=== PATIENT | male | born 1990 | race Caucasian/White ===

== ENCOUNTER 2017-08-14 11:05 | Day surgery (SDC) | payer BC ==
[~2017-08-14 11:05] MED LIST: Lactated Ringers 1,000 ML IV SCH
[2017-08-14] MEDS ORDERED: Lidocaine 2% 5 ML SDV ONE (11:33)
--- NOTE | 2017-08-14 11:56 | PCM.PREANE ---
Preanesthetic Assessment - Anesthesia/Transfusion/Family Hx Anesthesia History: Prior Anesthesia Without Reaction Family History of Anesthesia Reaction: No Transfusion History: No Prior Transfusion(s) Intubation History: Unknown - Review of Systems General: No Symptoms Pulmonary: No Symptoms Cardiovascular: No Symptoms Gastrointestinal: Abdominal Pain Neurological: No Symptoms Other: Reports: None - Physical Assessment O2 Sat by Pulse Oximetry: 96 Respiratory Rate: 18 Vital Signs: Last Vital Signs Temp 36.5 C 08/14/17 11:31 Pulse 70 08/14/17 11:31 Resp 18 08/14/17 11:31 BP 132/72 08/14/17 11:31 Pulse Ox 96 08/14/17 11:31 Height: 1.68 m Weight: 104.326 kg ASA Class: 2 Mental Status: Alert & Oriented x3 Airway Class: Mallampati = 2 Dentition: Reports: Normal Dentition Thyro-Mental Finger Breadths: 3 Mouth Opening Finger Breadths: 3 ROM/Head Extension: Full Lungs: Clear to Auscultation, Normal Respiratory Effort Cardiovascular: Regular Rate, Regular Rhythm - Allergies Allergies/Adverse Reactions: Allergies Allergy/AdvReac Type Severity Reaction Status Date / Time No Known Allergies Allergy Verified 08/08/17 08:32 - Blood Blood Available: No - Anesthesia Plan Pre-Op Medication Ordered: None - Acknowledgements Anesthesia Type Planned: MAC Pt an Appropriate Candidate for the Planned Anesthesia: Yes Alternatives and Risks of Anesthesia Discussed w Pt/Guardian: Yes Pt/Guardian Understands and Agrees with Anesthesia Plan: Yes PreAnesthesia Questionnaire Cardiovascular History: Reports: Other (See Below) Other Cardiovascular History: HTN in the past Gastrointestinal History: Reports: GERD Musculoskeletal History: Reports: Other (See Below) Other Musculoskeletal History: occasional back pain Endocrine/Metabolic History: Reports: Obesity/BMI 30+ - Past Surgical History Head Surgeries/Procedures: Reports: None Neurological Surgical History: Reports: Lumbar Spine Other Neurological Surgeries/Procedures: hx back surgery, - SUBSTANCE USE Smoking Status *Q: Never Smoker Recreational Drug Use History: No - HOME MEDS Home Medications: Home Meds Acetaminophen [Tylenol] 2 tab PO ASDIRECTED PRN 08/08/17 [History] Ibuprofen 2 tab PO ASDIRECTED PRN 08/08/17 [History] Pantoprazole Sodium 40 mg PO DAILY 08/08/17 [History] - CURRENT (IN HOUSE) MEDS Current Meds: Current Medications Lactated Ringer's (Ringers, Lactated) 1,000 mls @ 125 mls/hr IV ASDIRECTED [facility] Last Admin: 08/14/17 11:33 Dose: 125 mls/hr Discontinued Medications Lidocaine (Xylocaine-Mpf 2%) Confirm Administered Dose 5 ml .ROUTE .[facility] Stop: 08/14/17 11:34
[2017-08-14] MEDS ORDERED: fentaNYL 100 MCG/2 ML SDV ONE (12:58)
[2017-08-14] MEDS ORDERED: Propofol 200 MG/20 ML SDV ONE (12:58)
--- NOTE | 2017-08-14 15:00 | PCM48HPAN ---
Post Anesthesia Note - EVALUATION WITHIN 48HRS OF ANESTHETIC Vital Signs in Normal Range: Yes Patient Participated in Evaluation: Yes Respiratory Function Stable: Yes Airway Patent: Yes Cardiovascular Function Stable: Yes Hydration Status Stable: Yes Pain Control Satisfactory: Yes Nausea and Vomiting Control Satisfactory: Yes Mental Status Recovered: Yes - COMMENTS/OBSERVATIONS Free Text/Narrative:: no anesthesia problems.Patient skipped recovery room stage of postoperative care.
--- NOTE | 2017-08-14 22:52 | OR ---
SURGEON: Michael Rodriguez MD DATE OF PROCEDURE: 08/14/2017 PREOPERATIVE DIAGNOSES: Acid reflux and stomach pain. POSTOPERATIVE DIAGNOSIS: Esophagitis, moderate to severe. PROCEDURE PERFORMED: EGD with biopsy. DESCRIPTION OF PROCEDURE: EGD: The patient was taken to the endoscopy room, and with the BURRER MARKER AXLE, Diprivan was administered. A well-lubricated EGD scope was gently inserted through the oropharynx, down the esophagus, passing through the gastroesophageal junction, into the stomach. The mucosa was examined upon the passage. Any etiology will be noted. Once in the stomach, we continued to advance to the distal antrum, passed through the pylorus into the second portion of the duodenum. Again, the mucosa was examined for any abnormality and etiology. The scope was then retrieved back to the stomach and then retroflexed to look at the fundus of the stomach. If a biopsy was indicated, we will biopsy the antrum, body, and gastroesophageal junction. The air will be sucked out while the scope is retrieved to reduce the patient's discomfort. The patient tolerated the procedure well. There were no intraoperative complications. Dr. Rodriguez was present through the whole procedure. Prior to surgery, a time-out had been called, the patient identified, procedure identified and antibiotic administered. FINDINGS: 1. The patient is easily sedated with BURRER MARKER AXLE and Diprivan. The patient is soundly snoring. 2. Oropharynx and proximal esophagus are free of disease and no stricture or inflammation and distal esophagus at 40 shows quite significant flame-like structure of the GE junction, and concern for Steve esophagitis. In some areas, there is a skip area of an island of normal tissue and then inflammation, and at the same time, at couple areas, it looked like it is a healed ulcer at the esophagus and stomach is normal in appearance and stomach rugae is normal in appearance. No blood, no bile, no food, and duodenum was grossly normal. Antrum is a little bit inflamed. Retroflexed look at the fundus of stomach and there is no hiatal hernia. Biopsy done at antrum, body, and GE junction at 40 and sucked out air while scope pulling out. PRIMARY SURGEON: SECONDARY SURGEON: MAINTENANCE MECHANIC: REASON MAINTENANCE MECHANIC WAS NECESSARY: ROLE OF MAINTENANCE MECHANIC: BUBBA / RITU /[id number] MEAGHAN
== END 2017-08-14 15:00 | disposition home or self-care (01) ==
LOC: MW.SDS 11:05
PROVIDERS: ATTEND Surgery
DX: K29.50 Unspecified chronic gastritis without bleeding (principal); K21.0 Gastro-esophageal reflux disease with esophagitis; I10 Essential (primary) hypertension; Z79.899 Other long term (current) drug therapy
CPT/HCPCS: 43239; 76705; 88305; 88312; J3010; J7120; 00740; J2704